=== PATIENT | female | born 1990 | race Caucasian/White ===

== ENCOUNTER 2022-10-07 21:15 | Inpatient (IN) | payer OTHER ==
[~2022-10-07] VITALS: Ht 162.6 cm; Wt 1.8 kg
[~2022-10-07 21:15] MED LIST: PRENATAL TABLE1 EAC1 PO; RHO D IMMUNE GLOBULIN IJ
[2022-10-07] MEDS ORDERED: ACETAMINOPHEN500 M2 PO (23:15)
== END 2022-10-18 14:10 | disposition home or self-care (01) | DRG 785 ==
LOC: OBS/DEL 21:15 → LDR 10-08 09:41 → OB/GYN 10-09 14:15 → LDR 10-15 13:56 → OB/GYN 10-15 18:31
PROVIDERS: Obstetrics & Gynecology; ADMIT Obstetrics & Gynecology; ATTEND Obstetrics & Gynecology
PROC: 4A1HXCZ Monitoring of Products of Conception, Cardiac Rate, External Approach (ICD-10-PCS; 2022-10-08)
PROC: BY4FZZZ Ultrasonography of Third Trimester, Single Fetus (ICD-10-PCS; 2022-10-11)
PROC: 0UB70ZZ Excision of Bilateral Fallopian Tubes, Open Approach (ICD-10-PCS; 2022-10-15)
PROC: 10D00Z1 Extraction of Products of Conception, Low, Open Approach (ICD-10-PCS; principal; 2022-10-15 21:30)
DX: O14.14 Severe pre-eclampsia complicating childbirth (principal); O60.14X0 Preterm labor third trimester with preterm delivery third trimester, not applicable or unspecified; O26.843 Uterine size-date discrepancy, third trimester; O14.93 Unspecified pre-eclampsia, third trimester; O99.213 Obesity complicating pregnancy, third trimester; E66.01 Morbid (severe) obesity due to excess calories; O36.8130 Decreased fetal movements, third trimester, not applicable or unspecified; Z3A.34 34 weeks gestation of pregnancy; Z37.0 Single live birth; Z20.822 Contact with and (suspected) exposure to COVID-19; Z30.2 Encounter for sterilization

== ENCOUNTER 2025-01-17 00:29 | Emergency (ER) | payer OTHER ==
[~2025-01-17] VITALS: Ht 165.1 cm; Wt 98.4 kg
[~2025-01-17 00:29] MED LIST changes: +ACETAMINOPHEN500 M2 PO
[2025-01-17] MEDS ORDERED: KETOROLAC TROMETHAMINE 30 MG VIAL IV STA (03:24)
[2025-01-17] MEDS ORDERED: ORPHENADRINE CITRATE 30 MG/ML AMPUL IV STA (03:24)
[2025-01-17] MEDS ORDERED: PROMETHAZINE HCL 50 MG/ML AMPUL IM STA (03:24)
[2025-01-17] MEDS ORDERED: KETOROLAC TROMETHAMINE 30 MG VIAL ONE (03:28)
[2025-01-17] MEDS ORDERED: ORPHENADRINE CITRATE 30 MG/ML AMPUL ONE (03:29)
[2025-01-17] MEDS ORDERED: PROMETHAZINE HCL 50 MG/ML AMPUL IM ONE (03:29)
[2025-01-17 04:24] LABS: ALBUMIN 3.8 gm/dL (3.4-5.0); BILIRUBIN TOTAL 0.15 mg/dL (0.3-1.2); CALCIUM 9.3 mg/dL (8.5-10.1); CREATININE SERUM 0.79 mg/dL (0.55-1.02); GFR 84.34; POTASSIUM 3.9 mEq/L (3.5-5.1); TOTAL PROTEIN 7.8 gm/dL (6.4-8.2)
[2025-01-17 04:25] LABS: HEMOGLOBIN 12.5 g/dL (12.0-15.00); MEAN CELL VOLUME 75.7 fL (80.00-100.00); MEAN CORPUSCULAR HEMOGLOBIN 25.6 pg (27.00-32.0); MEAN CORPUSCULAR HGB CONC 33.9 g/dl (32.0-36.0); PLATELET COUNT 394 K/uL (150-450); RED BLOOD COUNT 4.89 M/uL (4.00-6.00); RED CELL DISTRIBUTION WIDTH 15.2 % (11.5-14.5)
[2025-01-17] MEDS ORDERED: DOLOGESIC-DF 51 EACH PO (06:10)
== END 2025-01-17 06:26 ==
LOC: ER 00:29
PROVIDERS: General Practice
DX: R51.9 Headache, unspecified (principal); H53.149 Visual discomfort, unspecified